=== PATIENT | male | born 1970 | race Caucasian/White ===

== ENCOUNTER 2021-09-16 09:47 | Outpatient (REF) | payer OTHER, SELFPAY | END 2021-09-16 09:48 | disposition home or self-care (01) | LOC: HO.BBR 09:47 | PROVIDERS: PCP Internal Medicine; Visit Provider Urology | DX: D75.1 Secondary polycythemia (principal) | CPT/HCPCS: 85018; 99195 ==

== ENCOUNTER 2022-03-17 09:54 | Outpatient (REF) | payer OTHER, SELFPAY | END 2022-03-17 09:55 | disposition home or self-care (01) | LOC: HO.BBR 09:54 | PROVIDERS: Visit Provider Urology | DX: D75.1 Secondary polycythemia (principal) | CPT/HCPCS: 85018; 99195 ==

== ENCOUNTER 2022-09-04 10:16 | Outpatient (REF) | payer OTHER, SELFPAY | END 2022-09-04 10:17 | disposition home or self-care (01) | LOC: HO.BBR 10:16 | PROVIDERS: Visit Provider Urology | DX: D45 Polycythemia vera (principal) | CPT/HCPCS: 85018; 99195 ==

== ENCOUNTER 2022-12-11 11:08 | Outpatient (REF) | payer OTHER, SELFPAY | END 2022-12-11 11:09 | disposition home or self-care (01) | LOC: HO.BBR 11:08 | PROVIDERS: Visit Provider Urology | DX: D45 Polycythemia vera (principal) | CPT/HCPCS: 85014; 85018; 99195 ==

== ENCOUNTER 2023-03-12 11:02 | Outpatient (REF) | payer OTHER, SELFPAY | END 2023-03-12 11:03 | disposition home or self-care (01) | LOC: HO.BBR 11:02 | PROVIDERS: Visit Provider Urology | DX: D45 Polycythemia vera (principal) | CPT/HCPCS: 85018; 99195 ==

== ENCOUNTER 2023-06-11 11:04 | Outpatient (REF) | payer OTHER, SELFPAY | END 2023-06-11 11:05 | disposition home or self-care (01) | LOC: HO.BBR 11:04 | PROVIDERS: PCP Internal Medicine; Visit Provider Urology | DX: D45 Polycythemia vera (principal) | CPT/HCPCS: 85018; 99195 ==

== ENCOUNTER 2023-08-27 12:19 | Outpatient (REF) | payer OTHER, SELFPAY | END 2023-08-27 12:20 | disposition home or self-care (01) | LOC: HO.BBR 12:19 | PROVIDERS: PCP Internal Medicine; Visit Provider Physician Assistant | DX: D45 Polycythemia vera (principal) | CPT/HCPCS: 85014; 85018; 99195 ==

== ENCOUNTER 2023-11-26 12:07 | Outpatient (REF) | payer OTHER, SELFPAY | END 2023-11-26 12:08 | disposition home or self-care (01) | LOC: HO.BBR 12:07 | PROVIDERS: PCP Internal Medicine; Visit Provider Physician Assistant | DX: D45 Polycythemia vera (principal) | CPT/HCPCS: 85018 ==

== ENCOUNTER 2024-03-03 11:59 | Outpatient (REF) | payer OTHER, SELFPAY | END 2024-03-03 12:00 | disposition home or self-care (01) | LOC: HO.BBR 11:59 | PROVIDERS: PCP Internal Medicine; Visit Provider Physician Assistant | DX: D45 Polycythemia vera (principal) | CPT/HCPCS: 85014; 85018; 99195 ==

== ENCOUNTER 2024-03-09 12:09 | Outpatient (REF) | payer OTHER, SELFPAY | END 2024-03-09 12:10 | disposition home or self-care (01) | LOC: HO.BBR 12:09 | PROVIDERS: PCP Internal Medicine; Visit Provider Physician Assistant | DX: D75.1 Secondary polycythemia (principal) | CPT/HCPCS: 85014; 85018; 99195 ==

== ENCOUNTER 2024-05-29 15:10 | Outpatient (REF) | payer OTHER, SELFPAY | END 2024-05-29 15:11 | disposition home or self-care (01) | LOC: HO.BBR 15:10 | PROVIDERS: PCP Internal Medicine; Visit Provider Urology | DX: D75.1 Secondary polycythemia (principal) | CPT/HCPCS: 85014; 85018; 99195 ==

== ENCOUNTER 2024-08-31 13:04 | Outpatient (REF) | payer OTHER, SELFPAY | END 2024-08-31 13:05 | disposition home or self-care (01) | LOC: HO.BBR 13:04 | PROVIDERS: PCP Internal Medicine; Visit Provider Urology | DX: D75.1 Secondary polycythemia (principal) | CPT/HCPCS: 85018; 99195 ==

== ENCOUNTER 2024-12-08 14:04 | Outpatient (REF) | payer OTHER, SELFPAY ==
--- OUTSIDE RECORDS SUMMARY | 2024-12-08 14:08 | XMS_ITS | Data Portability ---
Author Organization [facility], [facility] Address [address] [place] [address] Care Team Providers Care Temperature Regulator Name Role Phone PREETHI BENSON Primary Care Provider Assessment No assessment recorded. Plan of Treatment Reminders Order Date Submit Date Provider Last Modified By Organization Details Last Modified Time Details Appointments RECHECK 15 2024 11:15A M Catie Sandoval PA-C Not available Not available Not available Lab None recorded . Referral None recorded . Procedures None recorded . Surgeries None recorded . Imaging None recorded . Medication Orders None recorded . Patient TargetsNo targets recorded. Patient Instructions Encounter Date Encounter Id Patient Instructions Last Modified By Organization Details Last Modified Time 10/15/2023 [id number] You have been provided with a cortisone injection in order to reduce the pain and inflammation that you are experiencing. The injection consists of two medications. Cortisone (an anti-inflammatory that will take 48-72 hours to take effect) and Lidocaine (a numbing agent that will last 2-3 hours). Please note that not everyone will have a lasting response following the injection. PATIENT INSTRUCTIONS Once the Lidocaine wears off, you may have an increase in your pain. I recommend icing the affected area for 20 minutes 3-4 times per day. It is recommended that you refrain from any high level activities using the joint or limb that was injected for approximately 24-48 hours. Normal day-to-day activities are generally not a problem. POSSIBLE SIDE EFFECTS Individuals with dark complexions may experience some skin discoloration locally at the site of the injection. There is the possibility of an increase in discomfort within 48 hours following the injection. This is called a flare . To help minimize the chances of this, please see the post-injection instructions above. There is a less than 1% chance of an infection. If you notice any signs of infection (redness, warmth, drainage, fever greater than 100 degrees) please call our office or contact us through the portal DIETEREliane galeana Not available 10/11/2023 14:36:55 Reason for Referral None Reported. Results Created Date Observation Date Name Description Value Unit Range Abnormal Flag Note LastModifiedBy Organization Detail LastModifiedTime 02/18/20 24 02/28/2020 imagi ng/di agnos tic resul t No observ ation record ed. [email or web address] Not Available 01/21 09:58:14 Result Notes None recorded. Problems Name Problem SNOMED Code Status Onset Date Resolution Date Notes Provider Name and Address Organization Details Recorded Time No complaints [id number] Active Status : 'I'; Not Available [facility] 4 09:20:12 Localized, primary osteoarthr itis of the shoulder region 077893278 Active 2024 GAVINO Castorena-C [address], [place], [address] , [facility] 5 10:24:59 Osteoarthr itis of joint of left shoulder region 7478937268034 08 Active 2023 GAVINO Castorena-C [address], [place], [address] , [facility] 14:36:47 Problem Notes None recorded. Procedures Surgical History Date Name Laterality Status Provider Name and Address Organization Details Recorded Time 5 Sports Shoulder completed GAVINO Castorena-C [address], [place], [address], [facility] 09/26/2024 14:48:06 5 Sports Shoulder completed Catie Jaime PA-C [address], [place], [address], [facility] 06/27/2024 10:24:48 4 Sports Shoulder completed Catie Jaime PA-C [address], [place], [address], [facility] 03/14/2024 11:36:59 4 Sports Shoulder completed Catie Jaime PA-C [address], [place], [address], [facility] 12/21/2023 11:43:44 4 Sports Shoulder completed Catie Revinocencio, PA-C [address], [place], [address], [facility] 10/11/2023 14:36:33 Imaging Results None recorded. Procedure Notes None recorded. Medical Equipment None Reported. Allergies Allergen ID Allergen Name Allergen Category Reaction Reaction Severity Criticality Documentation Date Start Date Code Code System Note Provider Name and Address Organization Details Recorded Time 45577 Levaquin medicatio n Not available Not available Not available 08/23/20232012 93920 2 RxNorm Aller gyRea ction : 'Skin React ion'; Not Available [facility] 4 14:47:12 11748 acetamino phen / oxycodone medicatio n Not available Not available Not available 08/23/20232021 58267 3 RxNorm Not Available [facility] 4 14:47:12 Medications Name Sig Start Date Stop Date Status Note LastModified by Organization Details LastModified Time atorvastati n 10 mg tablet Take 1 tablet every day by oral route. active Not Available Not Available No t Available pantoprazol e 40 mg tablet,hector yed release active Not Available Not Available Not Available pseudoephed rine-guaife nesin ER 80-700 mg tablet,exte nded release DO NOT DRIVE WHILE TAKING THIS MEDICATIO N 07/03 completed Statu s: 'Disc ontin ued'; Not Available Not Available Not Available losartan 25 mg tablet active Not Available Not Available No t Available testosteron e 1 % (25 mg/2.5 gram) transdermal gel packet Apply 2 packets every day by transderm al route. active Not Available Not Available No t Available testosteron e 20.25 mg/1.25 gram per pump act.(1.62 %) transdermal gel active Not Available Not Available Not Available Auvi-Q 0.3 mg/0.3 mL injection, auto-inject or active Not Available Not Available Not Available Vitals Date Recorded Body height Body mass index (BMI) Body weight Provider Name and Address Organization Details Last Updated DateTime 06/27/2024 182.88 cm 24.4 kg/m2 80793.63 g Carmen Quiñonezlin [facility] 06/27/2024 13:05:49 Date Recorded Body height Body mass index (BMI) Body weight Provider Name and Address Organization Details Last Updated DateTime 09/28/2024 182.88 cm 24.4 kg/m2 82550.63 g Talisha Buckley [facility] 09/28/2024 11:32:52 Date Recorded Body height Body mass index (BMI) Body weight Provider Name and Address Organization Details Last Updated DateTime 10/15/2023 182.88 cm 24.4 kg/m2 80348.63 g KAYLSCOTT L'HEUREUX [facility] 10/15/2023 13:38:23 Date Recorded Body height Body mass index (BMI) Body weight Provider Name and Address Organization Details Last Updated DateTime 12/21/2023 182.88 cm 24.4 kg/m2 14123.63 g Oneal Bone [facility] 12/21/2023 14:10:17 Date Recorded Body height Body mass index (BMI) Body weight Provider Name and Address Organization Details Last Updated DateTime 03/17/2024 182.88 cm 24.4 kg/m2 68635.63 g Talisha Hendrix [facility] 03/17/2024 14:28:47 Social History Question Answer Notes LastModified by Organizat ion Details LastModified Time Tobacco Smoking Status Never Smoker KAYLIA L'HEUREUX [facility] 10/15/2023 13:39:33 Have You Ever Been Counseled For Unhealthy Alcohol Use? No Information not available 10/15/2023 What Is Your Relationship Status? Information not available 10/15/2023 Sex: Unknown Functional Status Question Answer Note LastModified by Organizat ion Details LastModified Time How many times per week do you consume alcohol? 1-2 times per week Information not available 10/15/2023 Do you use any illicit or recreational drugs? No Information not available 10/15/2023 Do you or have you ever used any other forms of tobacco or nicotine? No Information not available 10/15/2023 What is your level of alcohol consumption? Occasional Information not available 10/15/2023 Mental Status None recorded. Family History Nothing Reported. Medical History Condition Response Arthritis Y Hypertension Y Past Encounters Encounter ID Performer Location Encounter Start Date Encounter Closed Date Diagnosis/Indication Diagnosis SNOMED-CT Code Diagnosis ICD10 Code Diagnosis Note [id number] ELIZA Castorena [address] [place] [address] 10/15/2023 13:32:26 11/07/2023 17:48:27 Osteoarthritis of joint of left shoulder region 4294345473 02500 M19.012 PLANThe patient has done well with conservati ve management in regards to the shoulder with good clinical response to injections in the past. Recommend continued conservati ve management with repeat injection( s) today. Moderating activities with the upper extremity recommende d also. See procedure notes for injection details. [id number] ELIZA Castorena [address] floor [address] [address] 12/21/2023 14:03:58 12/21/2023 14:24:13 Osteoarthritis of joint of left shoulder region 0718183700 54749 M19.012 PLANThe patient has done well with conservati ve management in regards to the shoulder with good clinical response to injections in the past. Recommend continued conservati ve management with repeat injection( s) today. Moderating activities with the upper extremity recommende d also. See procedure notes for injection details. [id number] Catie Sandoval PA-C [place] [address] [address] 03/17/2024 14:06:30 04/04/2024 15:32:22 Osteoarthritis of joint of left shoulder region 8611098612 13619 M19.012 PLANThe patient has done well with conservati ve management in regards to the shoulder with good clinical response to injections in the past. Recommend continued conservati ve management with repeat injection( s) today. Moderating activities with the upper extremity recommende d also. See procedure notes for injection details. [id number] ELIZA Castorena [address] floor [address] [place] [address] 06/27/2024 13:00:30 07/07/2024 11:13:29 Localized, primary osteoarthritis of the shoulder region 499239221 M19.019 PLANTlucille patient has done well with conservati ve management in regards to the shoulder with good clinical response to injections in the past. Recommend continued conservati ve management with repeat injection( s) today. Moderating activities with the upper extremity recommende d also. See procedure notes for injection details. [id number] ELIZA Castorena [address] [place] [address] 09/28/2024 11:09:22 10/11/2024 10:07:30 Localized, primary osteoarthritis of the shoulder region 243374727 M19.019 Promise patient has done well with conservati ve management in regards to the shoulder with good clinical response to injections in the past. Recommend continued conservati ve management with repeat injection( s) today. Moderating activities with the upper extremity recommende d also. See procedure notes for injection details. Health Concerns Section Related Observation LastModified by Organization Detai ls LastModified Time None Recorded Concern Status LastModified by Organization Details LastModified Time None Recorded Advance Directives Directive None Recorded Payers Insurance Date Sequence Insurance Name Policy Number Policy Javier Covered Member ID Javier Member ID Guarantor Name 10/11/2024 1 [employer] (POS II) [id number] Myke Sandoval [id number] Myke Sandoval Notes Date Note Type Note Provider Name and Address Organization Details Recorded Time 10/15/2023 text/html I am seeing the patient under the general supervision of Dr. Meza who was available but who did not see the patient. History of Present Illness: Patient comes to the office with known history of glenohumeral arthritis of the left shoulder(s). The patient has done well with conservative management for their shoulder pain with good clinical response to cortisone injections in the past. Reports recently increasing discomfort over the past several weeks with no new injury or trauma. Pain is generalized about the shoulder and discomfort is worst at night. Last injections were 07/16/23 Catieedgar Sandoval, PA-C [address], [place], [address], [facility] 10/15/2023 14:11:21 12/21/2023 text/html I am seeing the patient under the general supervision of Dr. Meza who was available but who did not see the patient. History of Present Illness:Patient comes to the office with known history of glenohumeral arthritis of the left shoulder(s). The patient has done well with conservative management for their shoulder pain with good clinical response to cortisone injections in the past. Reports recently increasing discomfort over the past several weeks with no new injury or trauma. Pain is generalized about the shoulder and discomfort is worst at night. Last injections were 10/15/23 Catie Revinocencio, PA-C [address], [place], [address], [facility] 12/21/2023 14:22:50 03/17/2024 text/html I am seeing the patient under the general supervision of Dr. Meza who was available but who did not see the patient. History of Present Illness:Patient comes to the office with known history of glenohumeral arthritis of the left shoulder(s). The patient has done well with conservative management for their shoulder pain with good clinical response to cortisone injections in the past. Reports recently increasing discomfort over the past several weeks with no new injury or trauma. Pain is generalized about the shoulder and discomfort is worst at night. Last injections were 12/21/23 Catieedgar Sandoval, PA-C [address], [place], [address], [facility] 03/17/2024 15:03:06 06/27/2024 text/html I am seeing the patient under the general supervision of Dr. Meza who was available but who did not see the patient. History of Present Illness: Patient comes to the office with known history of glenohumeral arthritis of the left shoulder(s). The patient has done well with conservative management for their shoulder pain with good clinical response to cortisone injections in the past. Reports recently increasing discomfort over the past several weeks with no new injury or trauma. Pain is generalized about the shoulder and discomfort is worst at night. Last injections were 03/17/24 Catie Sandoval PA-C [address], [place], [address], [facility] 06/27/2024 13:23:22 09/28/2024 text/html I am seeing the patient under the general supervision of Dr. Meza who was available but who did not see the patient. History of Present Illness:Patient comes to the office with known history of glenohumeral arthritis of the left shoulder(s). The patient has done well with conservative management for their shoulder pain with good clinical response to cortisone injections in the past. Reports recently increasing discomfort over the past several weeks with no new injury or trauma. Pain is generalized about the shoulder and discomfort is worst at night. Last injections were 06/27/24 Catie Sandoval PA-C [address], [place], [address], [facility] 09/28/2024 12:03:35
== END 2024-12-08 14:05 | disposition home or self-care (01) ==
LOC: HO.BBR 14:04
PROVIDERS: PCP Internal Medicine; Visit Provider Urology
DX: D75.1 Secondary polycythemia (principal)
CPT/HCPCS: 85018

== ENCOUNTER 2025-02-27 13:01 | Outpatient (REF) | payer OTHER, SELFPAY ==
--- OUTSIDE RECORDS SUMMARY | 2025-02-27 15:17 | XMS_ITS | Encounter Summary ---
Author Organization [facility] Address [address] [place] [address] Phone Care Team Providers Care Delivery Rn Name Role Phone Oralia Rhodes MD Primary Care Provide r Encounter Details Date Type Department Care Team ([facility] Contact Info) Description 05/23/2021 Procedure Pass [facility] [address] [place] [id number] Social History Tobacco Use Types Packs/Day Years Used Date Smoking Tobacco: Never Smokeless Tobacco: Never Alcohol Use Standard Drinks/Week Comments Yes 14 (1 standard drink = 0.6 oz pu re alcohol) Sex and Gender Information Value Date Recorded Sex Assigned at Not on file Legal Sex Male 8:03 PM EST Gender Identity Not on file Sexual Orientation Not on file documented as of this encounter Plan of Treatment Not on file documented as of this encounter Visit Diagnoses Not on filedocumented in this encounter Care Teams Delivery Rn Relationship Specialty Start Date End Date Oralia Rhodes MD [address] [address] PCP - General Internal Medicine 01/10/21 documented as of this encounter Additional Source Comments The information contained in this document represents components of the legal health record. It is not the complete legal health record.[facility]
--- OUTSIDE RECORDS SUMMARY | 2025-02-27 15:18 | XMS_ITS | Clinical Summary ---
Author Organization [facility] Address [address] [facility] [address] [place] [address] Phone Care Team Providers Care Business Process Representative Name Role Phone Oralia Rhodes MD Primary Care Provide r Allergies Active Allergy Reactions Criticality Noted Date Comments Iodinated Contrast Media Erythema Low 05/22/2021 Swollen glands Levofloxacin Hives 05/22/2021 Oxycodone-Acetaminophen Hives 05/22/2021 Fish Derived Anaphylaxis High 05/22/2021 Medications pantoprazole (PROTONIX) 40 MG tablet 03/18/2021 Active LORazepam (ATIVAN) 1 MG tablet 04/15/2021 Active amLODIPine (NORVASC) 10 MG tablet 04/04/2021 Active senna (SENOKOT) 8.6 mg tablet Take 1 tablet by mouth daily. Active docusate sodium (COLACE) 100 MG capsule Take 100 mg by mouth 2 (two) times a day. Active therapeutic multivitamin tablet Take 1 tablet by mouth daily. Active Social History Tobacco Use Types Packs/Day Years Used Date Smoking Tobacco: Never Smokeless Tobacco: Never Alcohol Use Standard Drinks/Week Comments Yes 14 (1 standard drink = 0.6 oz pu re alcohol) Education Answer Date Recorded Are you interested in more education? Not on bobby e 10/15/2022 Are you concerned about learning? Not on file 10/15/2022 No 10/15/2022 No 10/15/2022 Digital Access Answer Date Recorded No 11/16/2022 No 11/16/2022 No 11/16/2022 Reliable internet access at home? Not on file 11/16/2022 Device with a working camera? Not on file Sex and Gender Information Value Date Recorded Sex Assigned at Not on file Legal Sex Male 8:03 PM EST Gender Identity Not on file Sexual Orientation Not on file Last Filed Vital Signs Vital Sign Reading Time Taken Comments Blood Pressure 129/72 05/23/2021 6:00 PM EST Pulse 89 05/23/2021 6:00 PM EST Temperature 36.3 C (97.3 F) 05/23/2021 5:35 PM EST Respiratory Rate 18 05/23/2021 5:35 PM EST Oxygen Saturation 99% 05/23/2021 6:00 PM EST Inhaled Oxygen Concentration - - Weight 78.9 kg (174 lb) 05/22/2021 3:52 PM EST Height 182.9 cm (6') 05/22/2021 3:52 PM EST Body Mass Index 23.6 05/22/2021 3:52 PM EST Plan of Treatment Health Maintenance Due Date Last Done Comments Adult Td,Tdap Booster 1969 LIPID PANEL 1969 DEPRESSION SCREENING 1981 HEPATITIS C SCREENING 1987 HIV ONE-TIME SCREENING (18-65 YEARS) 1987 COLOGUARD 2014 COLONOSCOPY 2014 COLORECTAL CANCER SCREENING 2014 FIT TEST 2014 FOBT 2014 SIGMOIDOSCOPY 2014 VIRTUAL COLONOSCOPY 2014 PNEUMOCOCCAL VACCINES (50+ years) (1 of 1 - PCV) 2019 ZOSTER VACCINES (1 of 2) 2019 COVID-19 VACCINE (4 - season) 2024 04/29/2021, 10/24/2020, 10/03/2020 INFLUENZA VACCINE (#1) 2025 , 04/28/2019, 06/08/2017, Additional history exists SMOKING STATUS SCREENING (Once After 26 Yrs) Completed 05/23/2021 HEPATITIS A VACCINES Aged Out No long er eligible based on patient's age to complete this topic HIB VACCINES Aged Out No longer eligi ble based on patient's age to complete this topic MENINGOCOCCAL VACCINES (ACWY) Aged Out No longer eligible based on patient's age to complete this topic MENINGOCOCCAL VACCINES (B) Aged Out N o longer eligible based on patient's age to complete this topic Medical Devices Implanted Type Area Educational Psychology Teacher Device Identifier Shelf Expiration Date Model / Serial / Lot Device Closure Mynxgrip 6-7fr Vascular Femoral Artery Atraumatic Tip Disp - Order In Multiples Of 11 - [id number] Implanted:Qty: 1 on 05/23/2021 by Edward Rosenberg MD at [facility] Closure Device Right: Groin [facility] 04/20/2023 [id number] / / [id number] Screw Screw Left: Shoulder Description:x8 screws [facility] EPO [facility] POS EPO [facility] POS EPO [facility] POS EPO [facility] POS EPO [employer] POS EPO Care Teams Business Process Representative Relationship Specialty Start Date End Date Oralia Rhodes MD [address] [address] PCP - General Internal Medicine 01/10/21 Additional Source Comments The information contained in this document represents components of the legal health record. It is not the complete legal health record.[facility]
--- OUTSIDE RECORDS SUMMARY | 2025-02-27 15:18 | XMS_ITS | Encounter Summary ---
Author Organization [facility] Address [address] [place] [address] Phone Care Team Providers Care Lottery Sales Clerk Name Role Phone Oralia Rohdes MD Primary Care Provide r Encounter Details Date Type Department Care Team ([facility] st Contact Info) Description 05/23/2021 Procedure Pass [facility] Imaging - Peripoerative Interventional Radiology [address] [place] [address], [address] [place] [address] Social History Tobacco Use Types Packs/Day Years [...] on filedocumented in this encounter Care Teams Lottery Sales Clerk Relationship Specialty Start Date End Date Oralia Rhodes MD [address] [address] PCP - General Internal Medicine 01/10/21 documented as of this encounter Additional Source Comments The information contained in this document represents components of the legal health record. It is not the complete legal health record.[facility]
--- OUTSIDE RECORDS SUMMARY | 2025-02-27 15:18 | XMS_ITS | Clinical Summary ---
Author Organization [address] Address [address] [place] [phone] Phone Care Team Providers Care Access Tech Name Role Phone Unavailable Primary Care Provider Unavailabl e Medications pantoprazole (PROTONIX) 40 mg EC tabletIndication s:Gastroesophage al reflux disease without esophagitis Take 1 tablet (40 mg total) by mouth 1 (one) time each day. Do not crush, chew, or split. 90 each 1 01/02/2025 Active Encounters Date Type Department Care Team Description 01/02/2025 Telephone Gastroenterology - [address] [place] [phone] Tung Hanley MD from Last 3 Months Social History Tobacco Use Types Packs/Day Years Used Date Smoking Tobacco: Never Assessed Sex and Gender Information Value Date Recorded Sex Assigned at Not on file Legal Sex Male 2:10 PM EST Gender Identity Not on file Sexual Orientation Not on file Plan of Treatment Upcoming Encounters Date Type Department Care Team ([facility] Contact Info) Description 03/27/2025 3:10 PM EDT Office Visit Gastroenterology - [address] [place] [phone] Tung Hanley MD [address] [place] [phone] Health Maintenance Due Date Last Done Comments DTaP,Tdap,and Td Vaccines (1 - Tdap) 02/27/1988 Hepatitis B Vaccines (1 of 3 - 19+ 3-dose series) 02/27/1988 Pneumococcal Vaccine: 50+ Ye ars (1 of 1 - PCV) 2019 Zoster Vaccines (1 of 2) 2019 Cholesterol Screening (Lipid Panel) 05/20/2022 Colorectal Cancer Screening: Colonoscopy 05/20/2022 HIV Screening 05/20/2022 Hepatitis C Screening 05/20/2022 Social Influencers of Health Screening 05/20/2022 COVID-19 Vaccine (1 - 2023-2 5 season) 2024 Depression Screening 06/21/2024 Influenza Vaccine (#1) 2025 HIB Vaccines Aged Out No longer eligi ble based on patient's age to complete this topic HPV Vaccines Aged Out No longer eligi ble based on patient's age to complete this topic Hepatitis A Vaccines Aged Out No long er eligible based on patient's age to complete this topic IPV Vaccines Aged Out No longer eligi ble based on patient's age to complete this topic MMR Vaccines Aged Out No longer eligi ble based on patient's age to complete this topic Meningococcal ACWY Vaccine Aged Out N o longer eligible based on patient's age to complete this topic Meningococcal B Vaccine Aged Out No l onger eligible based on patient's age to complete this topic RSV Immunization Patients Un dipesh 20 months Aged Out No longer eligible b ased on patient's age to complete this topic Varicella Vaccines Aged Out No longer eligible based on patient's age to complete this topic Insurance [employer]
== END 2025-02-27 13:02 | disposition home or self-care (01) ==
LOC: HO.BBR 13:01
PROVIDERS: PCP Internal Medicine; Visit Provider Urology
DX: D75.1 Secondary polycythemia (principal)
CPT/HCPCS: 85018; 99195

== ENCOUNTER 2025-06-01 10:07 | Outpatient (REF) | payer OTHER, SELFPAY | END 2025-06-01 10:08 | disposition home or self-care (01) | LOC: HO.BBR 10:07 | PROVIDERS: PCP Internal Medicine; Visit Provider Physician Assistant | DX: D75.1 Secondary polycythemia (principal) | CPT/HCPCS: 85014; 85018; 99195 ==